=== PATIENT | male | born 2000 | race Caucasian/White ===

== ENCOUNTER → 2019-04-12 | Outpatient (CLI) | payer BC ==
--- NOTE | 2019-04-12 16:00 | REP ---
Clinical: Right lower quadrant pain. Technique: Two views of the abdomen and pelvis. Findings: Bowel gas pattern is nonspecific. No bowel obstruction or perforation appreciated. Calcification in the right lower quadrant may represent appendicolith. No organomegaly. Skeletal structures intact. Impression: Possible appendicolith. Nonspecific bowel gas pattern. Electronically Signed by Oniel Wu MD 04/12/2019 03:52 P
== END ==
LOC: M LRY 15:26
PROVIDERS: ATTEND Physician Assistant
DX: R10.31 Right lower quadrant pain (principal)